=== PATIENT | male | born 1990 | race African-American/Black ===

== ENCOUNTER 2021-06-29 11:03 | Emergency (ER) | payer MEDICAID, OTHER ==
[2021-06-29] MEDS ORDERED: cefTRIAXone\\ROCEPHIN 500 MG VIAL ONE (12:37)
[2021-06-29] MEDS ORDERED: Azithromycin 250 MG TAB ONE (12:38)
[2021-06-29] MEDS ORDERED: Lidocaine 1% PF 5 ML VIAL ONE (12:39)
[2021-06-29 15:58] LABS: Chlam.trachomatis by PCR,Urine Not Detected (NotDetected)
== END 2021-06-29 12:46 | disposition home or self-care (01) ==
LOC: ERS 11:03
DX: N34.1 Nonspecific urethritis (principal); J45.909 Unspecified asthma, uncomplicated
CPT/HCPCS: 87491; 87591; 96372; 99283; J0696